=== PATIENT | female | born 1975 ===

== ENCOUNTER 2017-12-14 11:04 | Emergency (ER) | payer SELFPAY ==
[2017-12-14 11:39] VITALS: BP 124/84; PULSE 76; RESP 16; TEMP 97; O2SAT 98
--- NOTE | 2017-12-14 12:12 | ED PDOC ---
HPI: Eye Injury/Pain Time Seen by Provider: 12/14/17 11:11 Chief Complaint (Nursing): Eye Problem History Per: Family, [employer] (Gisela S (Ind[place]ian)) Additional Complaint(s): Pt. states yesterday she was scratching her R eye which resolved the itch then a few hours after her noted that her R eye was reddened. Denies discharge, visual changes, tearing, hx of DM, contact lens use, trauma, eye pain. Past Medical History Reviewed: Historical Data, Nursing Documentation, Vital Signs Vital Signs: Last Vital Signs Temp 97 F L 12/14/17 11:34 Pulse 76 12/14/17 11:34 Resp 16 12/14/17 11:34 BP 124/84 12/14/17 11:34 Pulse Ox 98 12/14/17 11:34 - Medical History PMH: No Chronic Diseases - Family History Family History: States: No Known Family Hx - Allergies Allergies/Adverse Reactions: Allergies Allergy/AdvReac Type Severity Reaction Status Date / Time No Known Allergies Allergy Verified 12/14/17 11:39 Review of Systems ROS Statement: Except As Marked, All Systems Reviewed And Found Negative Eyes: Positive for: Redness Physical Exam - Physical Exam Appears: Positive for: Well, Non-toxic, No Acute Distress Skin: Positive for: Normal Color, Warm. Negative for: Rash Eye Exam: Positive for: EOMI, PERRL, Other (R eye on lateral aspect with subconjunctival hemorrhage; no hyphema b/l). Negative for: Periorbital swelling , Periorbital tenderness ENT: Positive for: Normal ENT Inspection - ECG O2 Sat by Pulse Oximetry: 98 Medical Decision Making Medical Decision Making: Advised to f/u with ophto for further evaluation and to avoid ASA and NSAIDs until cleared by ophto. Disposition - Clinical Impression Clinical Impression: Subconjunctival hemorrhage of right eye - Patient ED Disposition Is Patient to be Admitted: No - Disposition Referrals: Filiberto Jones MD [Staff Provider] - [facility] [Outside] Disposition: Routine/Home Disposition Time: 12:12 Condition: STABLE Additional Instructions: FOLLOW UP WITH DR. JONES (EYE DOCTOR) FOR FURTHER EVALUATION MESHA MORAN, thank you for letting us take care of you today. Your provider was Nerissa Brown MD and you were treated for EYE PROBLEM. The emergency medical care you received today was directed at your acute symptoms. If you were prescribed any medication, please fill it and take as directed. It may take several days for your symptoms to resolve. Return to the Emergency Department if your symptoms worsen, do not improve, or if you have any other problems. Please contact your doctor or call one of the physicians/clinics you have been referred to that are listed on the Patient Visit Information form that is included in your discharge packet. Bring any paperwork you were given at discharge with you along with any medications you are taking to your follow up visit. Our treatment cannot replace ongoing medical care by a primary care provider outside of the emergency department. Thank you for allowing the [facility] team to be part of your care today. If you had an X-Ray or CT scan: A Radiologist will review the ED reading if any change in treatment is needed we will contact you. If you had a blood, urine, or wound culture: It will take several days for the results, if any change in treatment is needed we will contact you. If you had an STI test: It will take 48 hours for the results. Please call after 1 week if you have not heard back. Instructions: Subconjunctival Hemorrhage Print Language: WOLOF
== END 2017-12-14 12:20 | disposition home or self-care (01) ==
LOC: H.ER 11:04
DX: H11.31 Conjunctival hemorrhage, right eye (principal)